=== PATIENT | female | born 1965 | race Caucasian/White ===

== ENCOUNTER → 2016-07-30 | Outpatient (CLI) | payer BC ==
[~2016-07-30] MED LIST: CHOL100027 PO; DICY10CA12 PO; DOCU240C12 PO; EPP3/2 IM; LINA1CAP PO; PRENTAB26 PO; VITAMIN B12 IM
--- NOTE | 2016-07-30 09:10 | DIAGNOSTIC IMAGING REPORT ---
GI SERIES W/O KUB CLINICAL HISTORY: COMPLICATIONS OF BARIATRIC PROCEDURES. Weight gain. COMPARISON STUDY: None. FLUOROSCOPY TIME: 1.4 minutes. 27 images submitted. FINDINGS: Mild esophageal dysmotility. Esophagus normal in course and caliber. Small hiatus hernia. No gaseous of reflux. Evidence for prior gastric bypass. The gastric pouch is intact. There is no extraluminal contrast. The excluded portion of the stomach does not fill with contrast as expected. Contrast flows into the gastrojejunostomy. No evidence for bowel obstruction. IMPRESSION: Small hiatus hernia. Gastric bypass is within normal limits. Electronically signed by: Billy Carson M.D. 07/30/2016 9:09 AM Dictated Date/Time: 07/30/2016 9:07 AM
== END | disposition home or self-care (01) ==
LOC: C.RAD 08:27
PROVIDERS: ATTEND Surgery
DX: K95.89 Other complications of other bariatric procedure (principal)

== ENCOUNTER → 2017-04-08 | Outpatient (CLI) | payer BC ==
--- NOTE | 2017-04-13 15:31 | MAMMOGRAPHY REPORT ---
BILATERAL DIGITAL SCREENING MAMMOGRAM TOMOSYNTHESIS WITH CAD: 04/08/2017 CLINICAL HISTORY: Routine screening. Patient has no complaints. TECHNIQUE: Breast tomosynthesis in addition to standard 2D mammography was performed. Current study was also evaluated with a Computer Aided Detection (CAD) system. COMPARISON: Comparison is made to exams dated: 02/20/2015 mammogram and 03/29/2013 mammogram - [facility]. Also 10/11/2006 exams. BREAST COMPOSITION: There are scattered areas of fibroglandular density in both breasts. FINDINGS: No suspicious masses, calcifications, or areas of architectural distortion are noted in ei ther breast. There has been no significant interval change compared to prior exams. Scattered bilater al benign-appearing calcifications are not significantly changed. Small circumscribed benign-appeari ng masses in the right upper outer quadrant are stable compared to multiple prior exams and are there fore benign and likely represent intramammary lymph nodes. IMPRESSION: ACR BI-RADS CATEGORY 2: BENIGN There is no mammographic evidence of malignancy. A 1 year screening mammogram is recommended. The pa tient will receive written notification of the results. Approximately 10% of breast cancers are not detected with mammography. A negative mammographic report should not delay biopsy if a clinically suggestive mass is present. Dalia Holt M.D. ah/:04/13/2017 15:02:58 Educational Technology Specialist: Rica MARIE(Mahsa)(M), [facility] letter sent: Normal 1/2 BI-RADS Code: ACR BI-RADS Category 2: Benign
== END | disposition home or self-care (01) ==
LOC: C.MAMM 14:05
PROVIDERS: ATTEND Family Medicine
DX: Z12.31 Encounter for screening mammogram for malignant neoplasm of breast (principal)

== ENCOUNTER → 2018-01-31 | Outpatient (CLI) | payer BC ==
[~2018-01-31] MED LIST changes: -DOCU240C12 PO; +DOCU240C13 PO
--- NOTE | 2018-01-31 15:58 | DIAGNOSTIC IMAGING REPORT ---
R UPPER EXT JOINT WITHOUT CLINICAL HISTORY: 52 years-old Female with RIGHT SHOULDER PAIN. Chronic right shoulder pain with limited range of motion. Patient also complains of shoulder instability COMPARISON: Right shoulder radiographs 12/16/2017. TECHNIQUE: Multiplanar, multi sequence MRI of the right shoulder was performed without intravenous contrast. FINDINGS: ROTATOR CUFF: Moderate supraspinatus tendinosis with probable low-grade interstitial tearing of the anterior to mid insertional fibers seen best on the sagittal images. No high-grade partial or full-thickness tear identified. Mild tendinosis of the infraspinatus. The teres minor is intact. Mild tendinosis of the subscapularis tendon. The rotator cuff musculature is normal in morphology and signal. BICEPS TENDON: The long-head biceps tendon is intact. No evidence of tendinosis. The biceps mak and anchor are intact. LABRUM: Degenerative fraying/irregularity of the labrum. Linear area of increased signal of the superior labrum extending anterior to posterior suggests remote SLAP tear. No significant adjacent edema. There is no evidence for a paralabral cyst. GLENOHUMERAL JOINT: Mild joint space narrowing with low-grade chondromalacia and marginal spurring. Small joint effusion. There is no loose body or debris present within the glenohumeral joint. ACROMIOCLAVICULAR JOINT: Mild joint space narrowing with marginal spurring/capsular hypertrophy and subchondral cystic change/edema involves the AC joint. No evidence of os acromiale. Trace subacromial/subdeltoid bursitis. OUTLET SPACES: The suprascapular notch and quadrilateral space are without obstructing or space occupying lesions. BONE MARROW: No acute fracture. Subcortical cystic change/edema involves the greater tuberosity. SOFT TISSUES: The periarticular soft tissues are unremarkable. IMPRESSION: 1. Moderate supraspinatus and mild infraspinatus tendinosis with probable low-grade interstitial tearing of the anterior to mid insertional supraspinatus insertional fibers. No high-grade partial or full-thickness rotator cuff tear identified. 2. 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 3. Degenerative fraying/irregularity of the labrum with likely remote appearing SLAP tear. 4. Trace subacromial/subdeltoid bursitis. 5. Normal long head biceps tendon. The above report was generated using voice recognition software. It may contain grammatical, syntax or spelling errors. Electronically signed by: Greg Lemos M.D. 01/31/2018 3:57 PM Dictated Date/Time: 01/31/2018 3:47 PM
== END | disposition home or self-care (01) ==
LOC: C.MRIBC 15:13
PROVIDERS: ATTEND Orthopaedic Surgery
DX: M25.511 Pain in right shoulder (principal)

== ENCOUNTER 2020-07-29 12:16 | Observation (INO) ==
[2020-07-29] MEDS ORDERED: NITROGLYCERIN SL 0.4 MG/TAB TAB SL STA (12:37)
[2020-07-29 12:40] LABS: Basophils # (auto) 0.01 K/uL (0-0.2); Basophils % (auto) 0.2 %; Eosinophils # (auto) 0.09 K/uL (0-0.5); Eosinophils % (auto) 1.7 %; Hematocrit (blood only) 40.2 % (37-47); Hemoglobin 13.8 g/dL (12.0-16.0); Lymphocytes # (auto) 1.45 K/uL (1.2-3.4); Lymphocytes % (auto) 27.8 %; Mean Corpuscular Hemoglobin 31.2 pg (25-34); Mean Corpuscular Hgb Conc 34.3 g/dL (32-36); Mean Corpuscular Volume 90.7 fL (80-100); Mean Platelet Volume 10.7 fL (7.4-10.4); Monocytes % (auto) 7.7 %; Neutrophils # (auto) 3.27 K/uL (1.4-6.5); Neutrophils % (auto) 62.6 %; Platelet Count 239 K/uL (130-400); RDW Coefficient of Variation 12.5 % (11.5-14.5); RDW Standard Deviation 41.9 fL (36.4-46.3); Red Blood Count 4.43 M/uL (4.2-5.4); White Blood Count 5.22 K/uL (4.8-10.8)
--- NOTE | 2020-07-29 12:52 | Emergency Department Note ---
Impression & Plan Chest pain, Shortness of breath, Acute hypokalemia ED Provider Note NAME: JIMI ALBA AGE: 54 SEX: F : 1965 ARRIVES VIA: Walk-In INFORMANT: Patient ED PROVIDER(S): Walt Gomez DO CHIEF COMPLAINT: Chest pain HPI: Patient is a 54-year-old female who presents the ER for chest pain. She notes it started around 9 AM. She had chest tightness/pinching associated with left arm and jaw pain shortness of breath and diaphoresis. She notes it is worse with up moving around. She has been getting this intermittently over the past several years but never this bad. She notes she felt like she almost passed out. Symptoms have improved. Pain is currently a 4 out of 10. No other exacerbating or remitting factors. Denies any history of diabetes, hype rtension, hyperlipidemia, CAD or sudden in her family and young age. She does have a history of heart disease. Denies any recent trips or travel, coughing up blood, history of blood clots, history of clotting disorders. ROS: See above HPI for pertinent positives & negatives. A total of 10 systems reviewed and were otherwise negative. PAST MEDICAL HISTORY:See Below PAST SURGICAL HISTORY:See Below FAMILY HISTORY:See Below SOCIAL HISTORY:See Below HOME MEDICATIONS:See Below ALLERGIES:See Below VITALS:See Below PHYSICAL EXAMINATION: GENERAL: Sitting up in bed, alert, well appearing, well nourished, no distress, non-toxic EYE EXAM: normal conjunctiva. OROPHARYNX: no exudate, no erythema, lips, buccal mucosa, and tongue normal and mucous membranes are moist NECK: supple, no nuchal rigidity, no adenopathy, non-tender LUNGS: Clear to auscultation. Normal chest wall mechanics HEART: no murmurs, S1 normal and S2 normal ABDOMEN: abdomen soft, non-tender, normo-active bowel sounds, no masses, no rebound or guarding. BACK: Back is symmetrical on inspection and there is no deformity, no midline tenderness, no CVA tenderness. SKIN: no rashes and no bruising UPPER EXTREMITIES: upper extremities are grossly normal. LOWER EXTREMITIES: No pitting edema. NEURO EXAM: Normal sensorium, cranial nerves II-XII grossly intact, normal speech, no gross weakness of arms, no gross weakness of legs. MEDICAL DECISION MAKING: Patient is a 54-year-old female who presents the ER for chest pain shortness of breath which is worse with exertion. IV was established blood work was obtained. Labs show no significant leukocytosis or anemia. No thrombocytopenia. BMP with mild hypokalemia and hypochloremia. LFTs bilirubin are unremarkable. Lipase was normal. Troponin was negative. Covid was negative. Patient was given nitro and had resolution of her chest pain. That this is likely anxiety induced but cannot be certain at this time. Her history is fairly concerning although it is variable as she says that it is worse with exertion and then she will say that it is worse when she gets worked up from her anxiety. EKG did show nonspecific ST wave changes. No old to compare to. Chest x-ray was unremarkable. Discussed with hospitalist and she was admitted for observation chest pain-free. Triage Nursing notes reviewed. Limited review of prior medical records performed Vital Signs: reviewed and remarkable for no significant abnormalities Differential diagnosis: Differential diagnoses includes but is not limited to acute coronary syndrome, myocardial infarction, pericarditis, pulmonary embolus, aortic dissection, pneumonia, pneumothorax, musculoskeletal, shingles, esophageal. ER treatment provided: See below Diagnostics interpreted by me: ECG: Sinus rhythm rate of 72 Normal axis Poor baseline inferior leads QTC [address] wave changes in the lateral leads EKG #2 Sinus rhythm rate of 75 Normal axis No PVCs QTC [address] wave changes in the lateral leads unchanged from previous as well as in the inferior leads Cardiac Monitoring: An order was placed for continuous cardiac monitoring. The monitor shows a rate of 65 with sinus rhythm. Laboratory studies: As stated above and show below. Imaging studies: Portable AP upright 1 view of the chest shows no focal infiltrate or pneumothorax. Consultation(s): Discussed with Karlee Byrd from [facility] hospital service Procedures: none Critical Care: None Past Med/Surg History Medical History (Updated 07/29/20 @ 16:50 by Walt Gomez DO) Closed nondisplaced fracture of fifth left metatarsal bone Endometriosis IBS (irritable bowel syndrome) Nephrolithiasis Palpitations Surgical History (Updated 07/29/20 @ 16:02 by Kimberly Shay PA-C) Gastric bypass status for obesity H/O section H/O hernia repair H/O oral surgery H/O ventral hernia repair History of dilation and curettage History of gastric bypass S/P cholecystectomy S/P laparoscopy with excision of gynecologic lesions S/P total abdominal hysterectomy Family History Uncle Prostate cancer maternal Grandfather (Maternal) Pancreatic cancer Grandmother (Maternal) Ovarian cancer Family/Other Rectal carcinoma maternal cousin Mother Secondary Erma cell carcinoma Other Diabetes Dyslipidemia Endometriosis Hypertension Leiomyoma of uterus Social History Smoking Status: Never smoker Hx Alcohol Use: No Hx Substance Use: No Preferred Language: [place] Islander Communication Ability: Effective 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: No Beliefs That Will Affect Care: None marital status: Current Living Situation: Spouse and Family Other Information That Helps Us Care for You: No Feels Safe at Home: Yes Safety Concerns: Feels Safe At This Time Assistive Devices: Glasses Allergies Allergies Allergy/AdvReac Type Severity Reaction Status Date / Time bee venom protein (honey bee) Allergy Unknown ANAPHYLAXIS Verified 07/29/20 13:04 Penicillins Allergy Unknown UNKNOWN - Verified 07/29/20 13:04 HAPPENED A CHILD Home Meds Home Medications Medication Instructions Recorded Confirmed bisacodyl 10 mg rectal suppository 10 mg [place] DAILY PRN ea 02/10/19 07/29/20 conjugated estrogens 0.625 mg/gram 1 applic PV UD #1 gm 02/10/19 07/29/20 vaginal cream linaclotide 145 mcg capsule 145 mcg PO QAM cap 02/10/19 07/29/20 prenat.vits,diego,vhh-qeny-ieuvq 1 tab PO QAM 03/07/19 07/29/20 cholecalciferol (vitamin D3) 125 mcg PO QAM 07/29/20 07/29/20 [Vitamin D3] cyanocobalamin (vitamin B-12) 1,000 mcg IM Q3M 07/29/20 07/29/20 [Vitamin B-12] docusate sodium [Stool Softener] 100 mg PO BID PRN 07/29/20 07/29/20 Results & Data (ED) Vital Signs Vital Signs - 24 hr 07/29/20 12:17 07/29/20 12:30 07/29/20 12:37 Temperature 36.9 C Temperature Source Oral Pulse Rate 71 Pulse Rate [Apical] Pulse Rhythm Regular Pulse Strength Normal Respiratory Rate 16 Respiratory Effort / Characteristics Non-Labored Non-Labored Spontaneous Respiratory Depth Normal Normal Respiratory Pattern Regular Blood Pressure 134/87 Blood Pressure [Right Arm] Blood Pressure Mean 102 Blood Pressure Mean [Right Arm] Blood Pressure Position Sitting Pulse Oximetry 99 98 Oxygen Delivery Method Room Air Room Air Sepsis Recent Fever Within 48 Hours No Sepsis New/Unexplained Change in Mental Status N/A Sepsis Action Taken by Nursing No Action Required 07/29/20 12:43 Temperature Temperature Source Pulse Rate Pulse Rate [Apical] 76 Pulse Rhythm Pulse Strength Respiratory Rate 20 Respiratory Effort / Characteristics Non-Labored Spontaneous Respiratory Depth Normal Respiratory Pattern Regular Blood Pressure Blood Pressure [Right Arm] 111/71 Blood Pressure Mean Blood Pressure Mean [Right Arm] 84 Blood Pressure Position Pulse Oximetry 100 Oxygen Delivery Method Room Air Sepsis Recent Fever Within 48 Hours Sepsis New/Unexplained Change in Mental Status Sepsis Action Taken by Nursing Laboratory Data Result diagrams: 07/29/20 12:31 07/29/20 12:31 Lab Results 07/29/20 07/29/20 Range/Units 12:31 12:31 WBC 5.22 (4.8-10.8) K/uL RBC 4.43 (4.2-5.4) M/uL Hgb 13.8 (12.0-16.0) g/dL Hct 40.2 (37-47) % MCV 90.7 (80-100) fL MCH 31.2 (25-34) pg MCHC 34.3 (32-36) g/dL RDW Std Deviation 41.9 (36.4-46.3) fL RDW Coeff of Travis 12.5 (11.5-14.5) % Plt Count 239 (130-400) K/uL MPV 10.7 H (7.4-10.4) fL Immature Gran % (Auto) 0.0 % Neut % (Auto) 62.6 % Lymph % (Auto) 27.8 % [place] % (Auto) 7.7 % Eos % (Auto) 1.7 % Baso % (Auto) 0.2 % Neut # (Auto) 3.27 (1.4-6.5) K/uL Lymph # (Auto) 1.45 (1.2-3.4) K/uL [place] # (Auto) 0.40 (0.11-0.59) K/uL Eos # (Auto) 0.09 (0-0.5) K/uL Baso # (Auto) 0.01 (0-0.2) K/uL Immature Gran # (Auto) 0.00 (0.00-0.02) K/uL Sodium 144 (136-145) mmol/L Potassium 3.3 L (3.5-5.1) mmol/L Chloride 111 H (98-107) mmol/L Carbon Dioxide 28 (21-32) mmol/L Anion Gap 5.0 (3-11) BUN 12 (7-18) mg/dl Creatinine 0.78 (0.6-1.2) mg/dl Est Cr Clr Drug Dosing 81.6 ml/min Est GFR ( Amer) 98.5 Est GFR (Non-Af Amer) 85.0 BUN/Creatinine Ratio 15.1 (10-20) Glucose 90 (70-99) mg/dl Calcium 8.6 (8.5-10.1) mg/dl Total Bilirubin 0.6 (0.2-1) mg/dl AST 12 L (15-37) U/L ALT 23 (12-78) U/L Alkaline Phosphatase 77 (45-117) U/L Troponin I < 0.015 (0-0.045) ng/ml Total Protein 7.3 (6.4-8.2) gm/dl Albumin 4.1 (3.4-5.0) gm/dl Globulin 3.2 (2.5-4.0) gm/dl Albumin/Globulin Ratio 1.3 (0.9-2) Lipase 130 (73-393) U/L Administered Medications Heparin Sodium (Porcine) (Heparin Sod 5,000 Unit/0.5 Ml Vial) 5,000 units SQ Q8 [facility] Stop: 08/28/20 15:59 Last Admin: 07/29/20 16:57 Dose: 5,000 units Documented by: [id number] Discontinued Medications Acetaminophen (Acetaminophen 500 Mg Tab) 1,000 mg PO NOW ONE Stop: 07/29/20 16:01 Last Admin: 07/29/20 16:57 Dose: 1,000 mg Documented by: [id number] Nitroglycerin (Nitroglycerin Sl 0.4 Mg/Tab Tab) 0.4 mg SL NOW STA Stop: 07/29/20 12:38 Last Admin: 07/29/20 12:54 Dose: 0.4 mg Documented by: [id number] Discharge Plan Visit Data Chief Complaint: Chest Pain Stated Complaint: chest pain, pain going up left arm ED Provider: Walt Gomez Discharge Problem: Chest pain, Shortness of breath, Acute hypokalemia Patient Disposition: Admitted As Inpatient Discharge Instructions Interventions: ED Discharge Assessment Last Done: 07/29/20 15:20 Discharge Problem: Chest pain Qualifiers: Chest pain type: unspecified Qualified Code(s): R07.9 - Chest pain, unspecified
[2020-07-29 12:56] LABS: Alanine Aminotransferase 23 U/L (12-78); Albumin Level 4.1 gm/dl (3.4-5.0); Aspartate Aminotransferase 12 U/L (15-37); BUN Creatinine Ratio 15.1 (10-20); Blood Urea Nitrogen 12 mg/dl (7-18); Calcium 8.6 mg/dl (8.5-10.1); Carbon Dioxide 28 mmol/L (21-32); Chloride 111 mmol/L (98-107); Creatinine Clr Calc Pharmacy 81.6 ml/min; Est GFR (African American) 98.5; Glucose 90 mg/dl (70-99); Lipase 130 U/L (73-393); Potassium 3.3 mmol/L (3.5-5.1); Sodium 144 mmol/L (136-145)
--- NOTE | 2020-07-29 12:58 | XRay Report ---
XR chest 1V portable HISTORY: 54 years-old Female Chest Pain acute atypical chest pain COMPARISON: None TECHNIQUE: Portable AP view of the chest FINDINGS: Cardiomediastinal and hilar silhouettes are within normal limits. Calcified plaque of the thoracic ao rta. No pneumothorax, pleural effusion, airspace consolidation or overt pulmonary edema. Surgical cli ps project over the epigastric distribution. Bones of the chest appear grossly intact. IMPRESSION: No acute process. ACT 112: Negative or not required by law. The above report was generated using voice recognition software. It may contain grammatical, syntax o r spelling errors. Electronically signed by: Greg Lemos M.D. 07/29/2020 12:56 PM
[2020-07-29 13:01] LABS: Albumin Globulin Ratio 1.3 (0.9-2); Alkaline Phosphatase 77 U/L (45-117); Bilirubin,Total 0.6 mg/dl (0.2-1); Globulin 3.2 gm/dl (2.5-4.0); Total Protein 7.3 gm/dl (6.4-8.2); Troponin I < 0.015 ng/ml (0-0.045)
--- NOTE | 2020-07-29 13:50 | History & Physical Report ---
Date of Service July 29, 2020 Assessment & Plan (1) Chest pain: This is a 54yo F with PMH of gastric bypass, IBS, anemia and other medical problems listed below who presents with intermittent chest pain worse since this morning. Pain seems multi-factorial. Endorsing substernal CP with radiation relieved by ntg. Still experiencing MSK pain of L axilla, likely pec major. Also appears to have underlying anxiety No DM II, HTN, HLD, history of tobacco use. Remote family hx Initial troponin negative EKG without acute ischemic changes CXR IMPRESSION: No acute process Trend serial cardiac enzymes SL NTG PRN NPO @ MN for exercise ST in AM Repeat EKG in am Tylenol and warm compress ordered for MSK component (2) Palpitations: Follows with [facility] cardiology. Prescribed low dose metoprolol but patient no longer taking Monitor on telemetry (3) History of gastric bypass: Continue vitamin D, prenatals (4) IBS (irritable bowel syndrome): Continue Bentyl, Linzess DVT Ppx: SQ heparin Code status: FULL PCP: Magdaleno Dispo: Telemetry observation. Plan to return home once medically stable. Patient seen in collaboration with Dr. Myrick. Please see addendum. History of Present Illness Primary Care Provider: Bryan Dolan, DO This is a 54yo F with PMH of gastric bypass, IBS, anemia and other medical problems listed below who presents with intermittent chest pain worse since this morning. Has been having intermittent chest pain on both left and right side of chest for the past few months but felt different today. Describes pain as twisting and had an episode of worsening pain for 20 minutes associated with radiation to left jaw and paresthesias in left arm. Had cold sweats at this time and felt anxious. Denies any nausea, vomiting or shortness of breath. Chest pain improved with nitroglycerin in ED but still has pain in left armpit and left shoulder. Denies any personal history of heart disease, diabetes, hypertension or tobacco use. Exacerbated with movement. Has been feeling very anxious lately due providing care for multiple grandchildren. Feels worn down from carrying around [id number]. Has never been seen for anxiety and is not taking any antianxiety medication. Has followed with [facility] cardiology in the past with TTE with preserved EF and negative stress test from April 2019. Most recently seen for palpitations in clinic but normal EKG. Was prescribed low-dose beta-darryl but has not continued taking it due to it making her feel lightheaded. Currently comfortable with exception of twinging pain in left shoulder intermittently during exam. Pain in left chest has resolved as of now but still having palpitations. Endorsing lightheadedness. No fever, chills, headache, shortness of breath, nausea, vomiting, abdominal pain, dysuria, diarrhea or constipation. Allergies Allergy/AdvReac Type Severity Reaction Status Date / Time bee venom protein (honey bee) Allergy Unknown ANAPHYLAXIS Verified 07/29/20 13:04 Penicillins Allergy Unknown UNKNOWN - Verified 07/29/20 13:04 HAPPENED A CHILD Home Medications Medication Instructions Recorded Confirmed Type bisacodyl 10 mg rectal suppository 10 mg KS DAILY PRN ea 02/10/19 07/29/20 History conjugated estrogens 0.625 mg/gram 1 applic PV UD #1 gm 02/10/19 07/29/20 History vaginal cream linaclotide 145 mcg capsule 145 mcg PO QAM cap 02/10/19 07/29/20 History prenat.vits,diego,dqx-owuo-yqlvz 1 tab PO QAM 03/07/19 07/29/20 History cholecalciferol (vitamin D3) 125 mcg PO QAM 07/29/20 07/29/20 History [Vitamin D3] cyanocobalamin (vitamin B-12) 1,000 mcg IM Q3M 07/29/20 07/29/20 History dicyclomine 10 mg PO HS 07/29/20 07/29/20 History docusate sodium [Stool Softener] 100 mg PO BID PRN 07/29/20 07/29/20 History Past Med/Surg History Medical History (Updated 07/29/20 @ 16:50 by Walt Gomez DO) Closed nondisplaced fracture of fifth left metatarsal bone Endometriosis IBS (irritable bowel syndrome) Nephrolithiasis Palpitations Surgical History (Updated 07/29/20 @ 16:02 by Kimberly Shay PA-C) Gastric bypass status for obesity H/O section H/O hernia repair H/O oral surgery H/O ventral hernia repair History of dilation and curettage History of gastric bypass S/P cholecystectomy S/P laparoscopy with excision of gynecologic lesions S/P total abdominal hysterectomy Family History Uncle Prostate cancer maternal Grandfather (Maternal) Pancreatic cancer Grandmother (Maternal) Ovarian cancer Family/Other Rectal carcinoma maternal cousin Mother Secondary [place] cell carcinoma Other Diabetes Dyslipidemia Endometriosis Hypertension Leiomyoma of uterus Social History Smoking Status: Never smoker Hx Alcohol Use: No Hx Substance Use: No Preferred Language: Kiswahili Communication Ability: Effective 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 Physical Exam Physical Exam: General Appearance: WD/WN, vitals as above, NAD, sitting up in bed, pleasant, conversing easily Head: normocephalic, atraumatic Eyes: normal inspection, PERRL, conjunctivae normal, anicteric sclerae ENT: external ear and nose normal, oropharynx normal Neck: normal visual inspection, trachea midline, no thyromegaly Respiratory: normal respiratory effort, lungs clear to auscultation, no wheeze, rales, rhonchi. No accessory muscle use Cardiovascular: regular rate, rhythm, no murmur, normal peripheral pulses, no BLE edema. Vessels: no JVD Chest: normal inspection of chest Abdomen/GI: normal bowel sounds, soft, nontender, no hepatosplenomegaly Extremities/Musculoskeletal: no cyanosis or clubbing, extremities motor strength 5/5. +TTP of left axilla near pec major point of insertion Neurologic: PERRL, EOMI, accommodation nl, no face palsy, no dysarthria, CN's II-XI intact bilaterally and moves all extremities Psychiatric: A+Ox3, anxious Skin: no rashes, normal color, warm/dry Results & Data Results & Data ([facility]) Vital Signs (Past 12 Hours) Vital Signs Temp Pulse Pulse Resp BP BP Pulse Ox 07/29/20 12:43 76 20 111/71 100 07/29/20 12:37 98 07/29/20 12:17 36.9 C 71 16 134/87 99 Laboratory Results Short CBC 07/29/20 Range/Units 12:31 WBC 5.22 (4.8-10.8) K/uL Hgb 13.8 (12.0-16.0) g/dL Hct 40.2 (37-47) % Plt Count 239 (130-400) K/uL BMP 07/29/20 12:31 Sodium 144 Potassium 3.3 L Chloride 111 H Carbon Dioxide 28 BUN 12 Creatinine 0.78 Glucose 90 Calcium 8.6 Cardiac Enzymes 07/29/20 Range/Units 12:31 Troponin I < 0.015 (0-0.045) ng/ml Liver Function 07/29/20 Range/Units 12:31 Total Bilirubin 0.6 (0.2-1) mg/dl AST 12 L (15-37) U/L ALT 23 (12-78) U/L Alkaline Phosphatase 77 (45-117) U/L Albumin 4.1 (3.4-5.0) gm/dl Diagnostic Findings CXR: IMPRESSION: No acute process. Code Status & VTE Plan VTE Prophylaxis Plan VTE Prophylaxis will be ordered: Yes Supervising Physician Co-Signing Physician Notes Late entry patient was seen and examined on 07/29/2020. Patient presented with chest pain that started this morning. Patient describes the pain as sharp in nature, 7/10, radiated to the left upper extremity and the neck. Reports the pain lasted for more than half an hour. Patient reports she had similar painfully 6 months ago and went stress test which was negative. Patient reports she is taking care of her 16 month grandson and was lifting some boxes that triggered it. Denies any headache but does report dizziness. Denies any nausea vomiting. Denies any abdominal pain, diarrhea or dysuria. Denies any cough or sore throat. EKG was nonischemic. Cardiac enzymes were not concerning. Will continue to trend cardiac enzymes. Will obtain stress echoin the Ordered regular diet morning. Order diet. I performed a history and physical examination of the patient on 07/29/20, including specifically History and physical exam. I have discussed the patient's management with the advanced practitioner. Please refer to the Kimberly Shay note for the documented findings and plan of care.
[2020-07-29] MEDS ORDERED: POLYETHYLENE (MIRALAX) 17 GM PACK PO PRN (15:35)
[2020-07-29] MEDS ORDERED: ACETAMINOPHEN 325 MG TAB PO PRN (15:35)
[2020-07-29] MEDS ORDERED: NITROGLYCERIN SL 0.4 MG/TAB TAB SL PRN (15:35)
[2020-07-29] MEDS ORDERED: ONDANSETRON INJ 2 MG/ML 2 ML VIAL IV PRN (15:35)
[2020-07-29] MEDS ORDERED: ACETAMINOPHEN 500 MG TAB PO ONE (16:00)
[2020-07-29] MEDS: HEPARIN SOD 5,000 UNIT/0.5 ML VIAL SQ SCH ×2 (16:57→21:08)
[2020-07-29] MEDS ORDERED: POTASSIUM CHLORIDE CRTAB 20 MEQ TABCR PO ONE (17:30)
[2020-07-29] MEDS ORDERED: DOCUSATE SODIUM 100 MG CAP PO PRN (21:22)
[2020-07-29] MEDS ORDERED: bisacodyL 10 MG SUPP PR PRN (21:22)
[2020-07-29] MEDS ORDERED: DICYCLOMINE HCL 10 MG CAP PO SCH (21:25)
[2020-07-30] MEDS: HEPARIN SOD 5,000 UNIT/0.5 ML VIAL SQ SCH ×2 (05:28→14:14)
--- NOTE | 2020-07-30 06:13 | Electrocardiogram Report ---
Test Reason : Blood Pressure : / mmHG Vent. Rate : 072 BPM Atrial Rate : 072 BPM P-R Int : 152 ms QRS Dur : 074 ms QT Int : 410 ms P-R-T Axes : 077 065 046 degrees QTc Int : 448 ms Normal sinus rhythm Possible Left atrial enlargement Nonspecific ST abnormality Abnormal ECG No previous ECGs available Confirmed by Derek Ruby ([id number]) on 07/30/2020 6:12:58 AM Referred By: REFERRED SELF Confirmed By:Derek Ruby
--- NOTE | 2020-07-30 06:14 | Electrocardiogram Report ---
Test Reason : Blood Pressure : / mmHG Vent. Rate : 075 BPM Atrial Rate : 075 BPM P-R Int : 150 ms QRS Dur : 076 ms QT Int : 414 ms P-R-T Axes : 078 061 061 degrees QTc Int : 462 ms Normal sinus rhythm Normal ECG When compared with ECG of 29-JUL-2020 12:25, No significant change was found Confirmed by Derek Ruby ([id number]) on 07/30/2020 6:13:22 AM Referred By: REFERRED SELF Confirmed By:Derek Ruby
[2020-07-30 06:17] LABS: Hematocrit (blood only) 38.5 % (37-47); Mean Corpuscular Hemoglobin 30.8 pg (25-34); Mean Corpuscular Hgb Conc 33.8 g/dL (32-36); Mean Corpuscular Volume 91.2 fL (80-100); Mean Platelet Volume 10.5 fL (7.4-10.4); Platelet Count 218 K/uL (130-400); RDW Coefficient of Variation 12.7 % (11.5-14.5); RDW Standard Deviation 42.9 fL (36.4-46.3); Red Blood Count 4.22 M/uL (4.2-5.4); White Blood Count 3.88 K/uL (4.8-10.8)
[2020-07-30 06:54] LABS: BUN Creatinine Ratio 15.6 (10-20); Calcium 8.5 mg/dl (8.5-10.1); Creatinine Clr Calc Pharmacy 86.2 ml/min; Est GFR (African American) 106.7; Est GFR (Non-African American) 92.1; Potassium 3.8 mmol/L (3.5-5.1)
[2020-07-30 07:25] LABS: Estimated Average Glucose 103 mg/dl; Hemoglobin A1C 5.2 % (4.5-5.6)
[2020-07-30] MEDS ORDERED: LINACLOTIDE 145 MCG CAPSULE PO SCH (09:00)
[2020-07-30] MEDS ORDERED: ASPIRIN 81 MG ECTAB PO SCH (09:00)
[2020-07-30] MEDS ORDERED: CHOLECALCIFEROL 1,000 UNITS 25 MCG TAB PO SCH (09:00)
[2020-07-30] MEDS ORDERED: PRENATAL VITAMIN 1 TAB PO SCH (09:00)
--- NOTE | 2020-07-30 14:30 | Hospitalist Progress Note ---
Date of Service July 30, 2020 Assessment & Plan (1) Chest pain: This is a 54yo F with PMH of gastric bypass, IBS, anemia and other medical problems listed below who presents with intermittent chest pain worse since this morning. Pain seems multi-factorial. Endorsing substernal CP with radiation relieved by ntg. Still experiencing MSK pain of L axilla, likely pec major. Also appears to have underlying anxiety No DM II, HTN, HLD, history of tobacco use. Remote family hx Serial troponins are negative EKG without acute ischemic changes and repeat EKG remains unremarkable CXR IMPRESSION: No acute process Status post stress echo which was reported as normal She denies any symptoms now and will be discharged home (2) Palpitations: Follows with [facility] cardiology. Prescribed low dose metoprolol but patient no longer taking Monitor on telemetry No more arrhythmias noted (3) History of gastric bypass: Continue vitamin D, prenatals (4) IBS (irritable bowel syndrome): Continue Bentyl, Linzess DVT Ppx: SQ heparin Code status: FULL PCP: Magdaleno Dispo: Telemetry observation. Plan to return home once medically stable. Will be discharged home this afternoon Admission and Anticipated Discharge Date Admission Date: July 29, 2020 Subjective 07/30/2020 The patient was seen and examined in telemetry unit She was admitted with precordial chest pain with radiation to left arm and left jaw She is a status post stress echo which has been negative Denies any symptoms now and she wants to go home Review of Systems Review of Systems: All systems reviewed and are unremarkable except as noted below Cardiovascular: no chest pain and no palpitations Physical Exam Physical Exam: Lying in bed comfortably Constitutional: well developed and well nourished; not ill appearing and not in distress Eyes: PERRL, conjunctivae normal, anicteric sclerae ENMT: external ear and nose normal, oropharynx normal Neck: trachea midline, no thyromegaly Respiratory: no respiratory distress Auscultation: lungs clear to auscultation bilaterally Cardiovascular: Rate/Rhythm: regular rate and regular rhythm Heart Sounds: no murmur Extremities: no edema Gastrointestinal (Abdomen): Inspection/Auscultation: abdomen normal to inspection and normal bowel sounds; abdomen not distended Percussion/Palpation: abdomen soft; abdomen nontender Musculoskeletal: No acute arthritis in any joint Neurologic: Alert, awake and oriented x3. No focal sensory and motor deficit appreciated Psychiatric: A+Ox3, euthymic affect Lymphatic: no cervical or axillary lymphadenopathy Results & Data Results & Data ([facility]) Vital Signs (Past 12 Hours) Vital Signs Temp Pulse Resp BP Pulse Ox 07/30/20 11:49 36.7 C 63 18 97/66 L 98 07/30/20 07:32 36.8 C 55 L 16 104/69 97 07/30/20 03:59 36.6 C 52 L 18 109/70 98 Laboratory Results Short CBC 07/30/20 Range/Units 05:59 WBC 3.88 L (4.8-10.8) K/uL Hgb 13.0 (12.0-16.0) g/dL Hct 38.5 (37-47) % Plt Count 218 (130-400) K/uL BMP 07/30/20 05:59 Sodium 144 Potassium 3.8 D Chloride 111 H Carbon Dioxide 27 BUN 11 Creatinine 0.73 Glucose 90 Calcium 8.5 Cardiac Enzymes 07/29/20 07/30/20 Range/Units 18:27 00:34 Troponin I < 0.015 < 0.015 (0-0.045) ng/ml Medications Administered Current Inpatient Medications Acetaminophen (Acetaminophen 325 Mg Tab) 650 mg PO Q4H PRN PRN Reason: Pain or Fever Stop: 08/28/20 15:34 Aspirin (Aspirin 81 Mg Ectab) 81 mg PO QAM ANDREW Stop: 08/29/20 08:59 Last Admin: 07/30/20 09:32 Dose: 81 mg Documented by: Bisacodyl (Bisacodyl 10 Mg Supp) 10 mg MN DAILY PRN PRN Reason: Constipation Stop: 08/28/20 21:21 Dicyclomine HCl (Dicyclomine Hcl 10 Mg Cap) 10 mg PO HS ANDREW Stop: 08/28/20 21:24 Last Admin: 07/29/20 21:55 Dose: 10 mg Documented by: Docusate Sodium (Docusate Sodium 100 Mg Cap) 100 mg PO BID PRN PRN Reason: Constipation Stop: 08/28/20 21:21 Heparin Sodium (Porcine) (Heparin Sod 5,000 Unit/0.5 Ml Vial) 5,000 units SQ Q8 ANDREW Stop: 08/28/20 15:59 Last Admin: 07/30/20 14:14 Dose: 5,000 units Documented by: Linaclotide (Linaclotide 145 Mcg Capsule) 145 mcg PO QAM [facility] Stop: 08/29/20 08:59 Last Admin: 07/30/20 09:32 Dose: 145 mcg Documented by: Nitroglycerin (Nitroglycerin Sl 0.4 Mg/Tab Tab) 0.4 mg SL PRN PRN PRN Reason: Chest Pain Stop: 08/28/20 15:34 Ondansetron HCl (Ondansetron Inj 2 Mg/Ml 2 Ml Vial) 4 mg IV Q6H PRN PRN Reason: Nausea Stop: 08/28/20 15:34 Polyethylene Glycol (Polyethylene (Miralax) 17 Gm Pack) 17 gm PO DAILY PRN PRN Reason: Constipation Stop: 08/28/20 15:34 Prenat Multivit/Powell/Iron/Folic Ac ( Vitamin 1 Tab) [facility] Stop: 08/29/20 08:59 Last Admin: 07/30/20 09:31 Dose: 1 tab Documented by: Vitamin D (Cholecalciferol 1,000 Units 25 Mcg Tab) 5,000 [facility] Stop: 08/29/20 08:59 Last Admin: 07/30/20 09:32 Dose: 5,000 units Documented by: (1) Chest pain Chest pain type: unspecified Qualified Code(s): R07.9 - Chest pain, unspecified
--- NOTE | 2020-07-31 06:01 | Electrocardiogram Report ---
Test Reason : Blood Pressure : / mmHG Vent. Rate : 058 BPM Atrial Rate : 058 BPM P-R Int : 164 ms QRS Dur : 068 ms QT Int : 444 ms P-R-T Axes : 058 074 077 degrees QTc Int : 435 ms Sinus bradycardia Otherwise normal ECG When compared with ECG of 29-JUL-2020 12:39, No significant change was found Confirmed by Derek Ruby ([id number]) on 07/31/2020 6:01:11 AM Referred By: REFERRED SELF Confirmed By:Derek Ruby
--- NOTE | 2020-07-31 08:34 | Discharge Summary ---
Date of Service July 31, 2020 Admission HPI Per Admitting Provider This is a 54yo F with PMH of gastric bypass, IBS, anemia and other medical problems listed below who presents with intermittent chest pain worse since this morning. Has been having intermittent chest pain on both left and right side of chest for the past few months but felt different today. Describes pain as twisting and had an episode of worsening pain for 20 minutes associated with radiation to left jaw and paresthesias in left arm. Had cold sweats at this time and felt anxious. Denies any nausea, vomiting or shortness of breath. Chest pain improved with nitroglycerin in ED but still has pain in left armpit and left shoulder. Denies any personal history of heart disease, diabetes, hypertension or tobacco use. Exacerbated with movement. Has been feeling very anxious lately due providing care for multiple grandchildren. Feels worn down from carrying around [id number]. Has never been seen for anxiety and is not taking any antianxiety medication. Has followed with [facility] cardiology in th e past with TTE with preserved EF and negative stress test from April 2019. Most recently seen for palpitations in clinic but normal EKG. Was prescribed low-dose beta-darryl but has not continued taking it due to it making her feel lightheaded. Currently comfortable with exception of twinging pain in left shoulder intermittently during exam. Pain in left chest has resolved as of now but still having palpitations. Endorsing lightheadedness. No fever, chills, headache, shortness of breath, nausea, vomiting, abdominal pain, dysuria, diarrhea or constipation. Admission Exam Per Admitting Provider Physical Exam: General Appearance: WD/WN, vitals as above, NAD, sitting up in bed, pleasant, conversing easily Head: normocephalic, atraumatic Eyes: normal inspection, PERRL, conjunctivae normal, anicteric sclerae ENT: external ear and nose normal, oropharynx normal Neck: normal visual inspection, trachea midline, no thyromegaly Respiratory: normal respiratory effort, lungs clear to auscultation, no wheeze, rales, rhonchi. No accessory muscle use Cardiovascular: regular rate, rhythm, no murmur, normal peripheral pulses, no BLE edema. Vessels: no JVD Chest: normal inspection of chest Abdomen/GI: normal bowel sounds, soft, nontender, no hepatosplenomegaly Extremities/Musculoskeletal: no cyanosis or clubbing, extremities motor strength 5/5. +TTP of left axilla near pec major point of insertion Neurologic: PERRL, EOMI, accommodation nl, no face palsy, no dysarthria, CN's II-XI intact bilaterally and moves all extremities Psychiatric: A+Ox3, anxious Skin: no rashes, normal color, warm/dry Principal Diagnosis Chest pain-no ACS and negative stress echo, history of gastric bypass, IBS Discharge Exam Constitutional well developed and well nourished; not ill appearing and not in distress Eyes PERRL, conjunctivae normal, anicteric sclerae ENMT external ear and nose normal, oropharynx normal Neck trachea midline, no thyromegaly Respiratory no respiratory distress Auscultation: lungs clear to auscultation bilaterally Cardiovascular Rate/Rhythm: regular rate and regular rhythm Heart Sounds: no murmur Extremities: no edema Gastrointestinal (Abdomen) Inspection/Auscultation: abdomen normal to inspection and normal bowel sounds; abdomen not distended Percussion/Palpation: abdomen soft; abdomen nontender Psychiatric A+Ox3, euthymic affect Lymphatic no cervical or axillary lymphadenopathy Discharge Data Allergies Allergy/AdvReac Type Severity Reaction Status Date / Time bee venom protein (honey bee) Allergy Unknown ANAPHYLAXIS Verified 07/29/20 13:04 Penicillins Allergy Unknown UNKNOWN - Verified 07/29/20 13:04 HAPPENED A CHILD Consultations 07/29/20 13:57 ED Decision to Admit Stat Hospital Course (1) Chest pain: This is a 54yo F with PMH of gastric bypass, IBS, anemia and other medical problems listed below who presents with intermittent chest pain worse since this morning. Pain seems multi-factorial. Endorsing substernal CP with radiation relieved by ntg. Still experiencing MSK pain of L axilla, likely pec major. Also appears to have underlying anxiety No DM II, HTN, HLD, history of tobacco use. Remote family hx Serial troponins are negative EKG without acute ischemic changes and repeat EKG remains unremarkable CXR IMPRESSION: No acute process Status post stress echo which was reported as normal She denies any symptoms now and will be discharged home (2) Palpitations: Follows with [facility] cardiology. Prescribed low dose metoprolol but patient no longer taking Monitor on telemetry No more arrhythmias noted (3) History of gastric bypass: Continue vitamin D, prenatals (4) IBS (irritable bowel syndrome): Continue RaquelylEmelia DVT Ppx: SQ heparin Code status: FULL PCP: Magdaleno Dispo: Telemetry observation. Plan to return home once medically stable. Will be discharged home this afternoon Total Time Total Time Spent Total Time Spent (In Minutes): 35 minutes Total Time Includes: Examination of the Patient, Discharge Planning, Medication Reconciliation and Communication With Other Providers Discharge Plan Discharge Items Patient Disposition: Home - Self-Care Reason For Visit: CHEST PAIN Discharge Diagnosis: Chest pain-no ACS and negative stress echo, history of gastric bypass, IBS Condition on Discharge: Good Activity: Resume your previous activity Non-emergency contact: Primary Care Provider Call non-emergency contact if: you have any medication questions and your symptoms worsen Follow-up/Referrals: Bryan Dolan DO [Primary Care Provider] - (Date & Time 08/06/2020 2:20 PM Provider Bryan Dolan DO Department [facility] ) Diet: Heart Healthy Addtl Attending Provider Instructions: Your pain could be musculoskeletal and you can try simple pain medications for the Any significant heart disease has been excluded by the stress test Pending Studies at Discharge: No Stand-Alone Forms: My [employer], Smoking Cessation Medications and DC Order Prescriptions: Continued linaclotide 145 mcg capsule 145 mcg PO QAM RF: 0 bisacodyl 10 mg suppository 10 mg NM DAILY PRN (Reason: Constipation) RF: 0 conjugated estrogens 0.625 mg/gram cream 1 applic PV UD Qty: 1 RF: 0 prenat.vits,diego,ixp-yckv-pcbfw tablet 1 tab PO QAM RF: 0 cyanocobalamin (vitamin B-12) 1,000 mcg/mL Solution 1,000 mcg IM Q3M RF: 0 docusate sodium [Stool Softener] 100 mg Capsule 100 mg PO BID PRN (Reason: Constipation) RF: 0 cholecalciferol (vitamin D3) [Vitamin D3] 125 mcg (5,000 unit) Tablet 125 mcg PO QAM RF: 0 dicyclomine 10 mg Capsule 10 mg PO HS RF: 0 Discharge Orders: Discharge Order (Routine); Ordered 07/30/20 Ordered By: Hao Kendall Admission Data Admit Date/Time: 07/29/20 13:47 Attending Provider: Hao Kendall Admit Provider: Adair Myrick Primary Care Provider: Bryan Dolan Other Providers: Adair Myrick Other Interventions: Discharge Summary Assessment (RN) Last Done: 07/30/20 14:39
== END 2020-07-30 15:38 | disposition home or self-care (01) ==
LOC: 2S 12:16 → ED 12:16 → SUATTDRO 13:47 → 2S 15:20